=== PATIENT | male | born 1945 | race Caucasian/White ===

== ENCOUNTER 2017-09-18 13:10 | Observation (INO) ==
--- NOTE | 2017-09-18 19:04 | Internal Med History&Physical ---
Date of Encounter: 09/18/17 Time of Encounter: 19:04 Internal Medicine - H&P: HPI Chief complaint: SOB History of present illness: Mr. Donato is a 71 year old male that appears ill and Has history of aspiration pneumonia who presented with Symptoms similar to previous episodes of this now. He is non verbal and history could not be obtained. Patient's blood pressure dropped into the 70s and Sepsis protocol and order set initiated. The patient should be NPO and has a peg tube , but occassinally will have food orally. The patient was evaluated by the ER staff, receive IV fluid which improved his low pressure significantly, there was no evidence of pneumonia on chest x-ray however giving his past medical history and his presentation , there was a concern for aspiration pneumonia for pneumonia, the patient was admitted for further evaluation and management. Past Med Surg Social Fam HX - Past Medical History Medical history: cancer, COPD, CVA, hyperlipidemia, hypertension, seizures, thyroid disease, other Additional medical history: CHRONIC BACK PAIN Psychiatric history: no psych history - Past Surgical History Surgical History: appendectomy, cancer surgery, herniorrhaphy, tracheostomy Additional surgical history: RADICAL NECK DISECTION, TONGUE SURG, G-TUBE - Social History Smoking Status: Former smoker Smokeless Tobacco Status: No Alcohol use: none Drug use: marijuana - Family History Grandfather History Unknown: Yes Living Status: Internal Medicine - H&P: Meds Amlodipine Besylate 2.5 mg PO DAILY 09/18/17 [History] Atenolol [Tenormin] 25 mg PO DAILY 09/18/17 [History] Docusate [Colace] 100 mg PO DAILY 09/18/17 [History] Guaifenesin [Mucus Relief] 400 mg PO Q6H PRN 09/18/17 [History] Ipratropium/Albuterol Neb [Duoneb] 3 ml IH Q6HR PRN 09/18/17 [History] Levothyroxine [Synthroid] 175 mcg PO DAILY 09/18/17 [History] Oxycodone HCl [Oxycontin] 10 mg PO BID 09/18/17 [History] Phenytoin [Dilantin] 100 mg PO TID 09/18/17 [History] 3 Allergy/AdvReac Type Severity Reaction Status Date / Time No Known Allergies Allergy Verified 09/18/17 18:40 ROS unobtainable: due to mental status All Systems PM: A 10-system review of systems was performed and is negative for pertinent findings except as documented above in the HPI. - Constitutional Vitals: Temp Pulse Resp BP Pulse Ox 98.9 F 63 14 123/73 95 09/18/17 17:17 09/18/17 17:17 09/18/17 17:17 09/18/17 17:17 09/18/17 17:17 General appearance: Present: A&O X 3 - Head Head exam: Present: atraumatic, normocephalic - Respiratory Respiratory exam: Present: rhonchi. Absent: accessory muscle use, rales, wheezes - Cardiovascular Cardiovascular exam: Present: RRR, +S1, +S2. Absent: diastolic murmur, gallop, rubs, systolic murmur - GI/Abdominal GI/Abdominal exam: Present: normal bowel sounds, soft, no peritoneal signs. Absent: distended, tenderness Additional comments: peg tube in place - Extremities Exam Extremities exam: Present: warm, radial pulses palpable and symmetrical. Absent : calf tenderness, cyanotic, pedal edema Internal Med - H&P Results - Labs CBC & Chem 7: 09/19/17 05:20 09/19/17 05:20 - Assessment and plan (1) Aspiration pneumonia Current Visit: Yes Status: Acute Assessment and plan: - Aspiration Pneumonia - Blood Cx -NPO - Antibiotics - CBCD, CMP in AM - Tylenol 650 mg PO q 4-6 hr PRN pain or fever - Home meds - check the list and restart accordingly - Heparin 5000 U SQ BID Qualifiers: Qualified Code(s): J69.0 - Pneumonitis due to inhalation of food and vomit (2) Tongue cancer Current Visit: No Status: Resolved Assessment and plan: Status post radical neck dissection (3) Hyperlipidemia Current Visit: Yes Status: Acute Assessment and plan: We will obtain fasting lipid profile and continue home medication Qualifiers: Qualified Code(s): E78.5 - Hyperlipidemia, unspecified (4) Seizure Current Visit: No Status: Acute Assessment and plan: We will continue home medication (5) Hypothyroidism Current Visit: Yes Status: Acute Assessment and plan: We will continue levothyroxine Qualifiers: Qualified Code(s): E03.9 - Hypothyroidism, unspecified (6) Anemia Current Visit: Yes Status: Acute Assessment and plan: Likely secondary to chronic disease we will continue to monitor H&H Qualifiers: Qualified Code(s): D64.9 - Anemia, unspecified (7) DVT prophylaxis Current Visit: Yes Status: Acute Assessment and plan: Heparin 5000 twice a day - Time Spent With Patient Total time spent is greater than 50% in coordination of care (as documented) at patient's floor/unit and/or counseling patient:
[2017-09-18] MEDS ORDERED: Naloxone 0.4 MG/ML INJ IVP PRN (20:21)
[2017-09-18] MEDS ORDERED: Ondansetron 4 MG/2 ML VIAL IVP PRN (20:21)
[2017-09-18] MEDS ORDERED: *HR* HYDROcodone/Acet 5/325 mg TABLET PO PRN (20:21)
[2017-09-18] MEDS ORDERED: Acetaminophen 325 MG TABLET PO PRN (20:21)
[2017-09-18] MEDS ORDERED: Ipratropium/Albuterol Neb 3 ML IH PRN (20:26)
[2017-09-18] MEDS ORDERED: GuaiFENesin Liq 200 MG/10 ML UDC PO PRN (20:26)
[2017-09-18] MEDS ORDERED: *HR* OxyCODONE ER (12 HR) 10 MG TABLET PO SCH (21:00)
[2017-09-18] MEDS: *HR* OxyCODONE Immed Rel 5 MG TABLET PO PRN (21:33)
[2017-09-18] MEDS: 0.9 % Sodium Chloride 1,000 ML IVC SCH (21:33)
[2017-09-18 22:51] LABS: Chol/HDL Ratio 2.7 (0-4.9)
[2017-09-19 05:57] LABS: Hematocrit 36.3 % (37.5-50.1); Hemoglobin 12.5 g/dL (12.9-16.9); Mean Corpuscular HGB Conc 34.4 g/dL (31.6-35.5); Mean Corpuscular Hemoglobin 32.6 pg (28.0-33.3); Mean Corpuscular Volume 94.5 fL (83.0-100.0); Mean Platelet Volume 10.7 fL (9.4-12.4); Platelet Count 325 K/mcL (140-400); Red Blood Count 3.84 M/mcL (4.19-5.50); Red Cell Distribution Width 12.2 % (11.5-14.5)
[2017-09-19 06:04] LABS: INR 1.1; Prothrombin Time 12.5 Seconds (9.4-12.1)
[2017-09-19] MEDS: *HR* Heparin 5,000 UNIT/ML VIAL SQ SCH ×2 (06:12→16:29)
[2017-09-19 06:17] LABS: Alanine Aminotransferase 13 Units/L (7-52); Albumin 3.6 g/dL (3.5-5.7); Albumin/Globulin Ratio 1.3 (1.1-2.2); Alkaline Phosphatase 92 Units/L (34-104); Aspartate Amino Transferase 23 Units/L (13-39); BUN/Creatinine Ratio 26 (6-26); Bilirubin,Total 0.4 mg/dL (0.3-1.0); Blood Urea Nitrogen 23 mg/dL (8-23); Calcium 9.1 mg/dL (8.6-10.3); Carbon Dioxide 25 mEq/L (23-29); Chloride 105 mEq/L (98-107); Globulin 2.8 g/dL (2.4-3.5); Glucose 82 mg/dL (70-105); Osmolality,Calculated 283 (280-300); Phosphorous 2.9 mg/dL (2.7-4.5); Potassium 3.7 mEq/L (3.5-5.1); Sodium 135 mEq/L (136-145); Total Protein 6.4 g/dL (6.4-8.9); eGFR For African Americans > 60 (> 60); eGFR For Non-African Americans > 60 (> 60)
[2017-09-19] MEDS: amLODIPine 5 MG TABLET PO SCH (10:10)
[2017-09-19] MEDS: *HR* OxyCODONE Immed Rel 5 MG TABLET PO PRN (10:11)
[2017-09-19] MEDS: Piperacillin/Tazobactam 3.375 GM in 0.9 % Sodium Chloride Mini Bag 100 ML IVPB SCH ×2 (10:12→16:25)
--- NOTE | 2017-09-19 10:51 | Internal Med Progress Note ---
Date of Encounter: 09/19/17 Time of Encounter: 10:51 - Assessment and plan (1) Aspiration pneumonia Current Visit: Yes Status: Acute Assessment and plan: We will continue antibiotic coverage, no further fevers reported, leukocytic count is significantly improving, culture are pending Qualifiers: Qualified Code(s): J69.0 - Pneumonitis due to inhalation of food and vomit (2) Hyperlipidemia Current Visit: Yes Status: Acute Assessment and plan: fasting lipid profile is not was noted Qualifiers: Qualified Code(s): E78.5 - Hyperlipidemia, unspecified (3) Seizure Current Visit: No Status: Acute Assessment and plan: We will continue home medication (4) Hypothyroidism Current Visit: Yes Status: Acute Assessment and plan: We will continue levothyroxine Qualifiers: Qualified Code(s): E03.9 - Hypothyroidism, unspecified (5) Anemia Current Visit: Yes Status: Acute Assessment and plan: Likely secondary to chronic disease we will continue to monitor H&H Qualifiers: Qualified Code(s): D64.9 - Anemia, unspecified (6) DVT prophylaxis Current Visit: Yes Status: Acute Assessment and plan: Heparin 5000 twice a day - Time Spent With Patient Total time spent is greater than 50% in coordination of care (as documented) at patient's floor/unit and/or counseling patient: - Subjective Interval history: Patient is comfortable, sleepy, no events overnight. - Constitutional Vitals: Temp Pulse Resp BP Pulse Ox 97.5 F L 68 17 117/76 95 09/19/17 07:55 09/19/17 07:55 09/19/17 07:55 09/19/17 07:55 09/19/17 07:55 General appearance: Present: A&O X 3 - Head Head exam: Present: atraumatic, normocephalic - Neck Neck exam general surgery: Present: supple, trachea midline. Absent: lymphadenopathy - Respiratory Respiratory exam: Present: CTAB. Absent: accessory muscle use, rales, rhonchi, wheezes - Cardiovascular Cardiovascular exam: Present: RRR, +S1, +S2. Absent: diastolic murmur, gallop, rubs, systolic murmur - GI/Abdominal GI/Abdominal exam: Present: normal bowel sounds, soft, no peritoneal signs. Absent: distended, tenderness - Extremities Exam Extremities exam: Present: warm, radial pulses palpable and symmetrical. Absent : calf tenderness, cyanotic, pedal edema Internal Medicine: Result - Labs CBC & Chem 7: 09/19/17 05:20 09/19/17 05:20 Labs: Short CBC 09/19/17 Range/Units 05:20 WBC 9.9 (4.3-11.1) K/mcL Hgb 12.5 L (12.9-16.9) g/dL Hct 36.3 L (37.5-50.1) % Plt Count 325 (140-400) K/mcL BMP 09/19/17 05:20 Sodium 135 L Potassium 3.7 Chloride 105 Carbon Dioxide 25 BUN 23 Creatinine 0.87 Glucose 82 Calcium 9.1 Liver Function 09/19/17 Range/Units 05:20 Total Bilirubin 0.4 (0.3-1.0) mg/dL AST 23 (13-39) Units/L ALT 13 (7-52) Units/L Alkaline Phosphatase 92 (34-104) Units/L Albumin 3.6 (3.5-5.7) g/dL - ABG Interpretation ABG results: PT/INR, D-dimer PT 12.5 Seconds (9.4-12.1) H 09/19/17 05:20 Consult Discharge Plan - Plan [facility]errals: [facility] [Primary Care Provider] -
[2017-09-19] MEDS: 0.9 % Sodium Chloride 1,000 ML IVC SCH (20:12)
[2017-09-20] MEDS: Piperacillin/Tazobactam 3.375 GM in 0.9 % Sodium Chloride Mini Bag 100 ML IVPB SCH ×4 (00:05→23:39)
[2017-09-20] MEDS: *HR* Heparin 5,000 UNIT/ML VIAL SQ SCH ×2 (06:30→18:02)
[2017-09-20] MEDS: amLODIPine 5 MG TABLET PO SCH (08:46)
[2017-09-20] MEDS ORDERED: 0.9 % Sodium Chloride 1,000 ML IVC ONE (11:47)
--- NOTE | 2017-09-20 12:23 | Internal Med Progress Note ---
Date of Encounter: 09/20/17 Time of Encounter: 12:20 - Assessment and plan (1) Aspiration pneumonia Current Visit: Yes Status: Acute Assessment and plan: Will continue with Zosyn. No further fevers reported, leukocytic count is significantly improving, culture are pending. Will check chest x ray in am. Qualifiers: Qualified Code(s): J69.0 - Pneumonitis due to inhalation of food and vomit (2) Hyperlipidemia Current Visit: Yes Status: Acute Assessment and plan: LDL 101, recommend low cholesterol and low fat diet Qualifiers: Qualified Code(s): E78.5 - Hyperlipidemia, unspecified (3) Seizure Current Visit: No Status: Acute Assessment and plan: Dilantin (4) Hypothyroidism Current Visit: Yes Status: Acute Assessment and plan: Levothyroxine Qualifiers: Qualified Code(s): E03.9 - Hypothyroidism, unspecified (5) Anemia Current Visit: Yes Status: Acute Assessment and plan: Hgb stable. Monitor prn Qualifiers: Qualified Code(s): D64.9 - Anemia, unspecified (6) DVT prophylaxis Current Visit: Yes Status: Acute Assessment and plan: Heparin (7) Hypotension Current Visit: Yes Status: Acute Assessment and plan: Pt's BP dropped to 59/39. Given fluid bolus and maintenance fluid. Repeat BP 162 /95 Qualifiers: Qualified Code(s): I95.9 - Hypotension, unspecified - Time Spent With Patient Total time spent is greater than 50% in coordination of care (as documented) at patient's floor/unit and/or counseling patient: less than 15 minutes - Subjective Interval history: Pt was confused this morning. But that improved with some fluids. Pt denies CP but did request oxygen. - Constitutional Vitals: Temp Pulse Resp BP Pulse Ox 98.5 F 74 14 59/39 93 09/20/17 11:33 09/20/17 11:33 09/20/17 11:33 09/20/17 11:33 09/20/17 11:33 General appearance: Present: A&O X 3 - Head Head exam: Present: atraumatic, normocephalic - Eye Eye exam: Present: PERRL, conjuntiva pink, sclera anicteric Pupils: Present: PERRL - Neck Neck exam general surgery: Present: supple, trachea midline. Absent: lymphadenopathy - Respiratory Respiratory exam: Present: rhonchi. Absent: accessory muscle use, CTAB, rales, wheezes - Cardiovascular Cardiovascular exam: Present: RRR, +S1, +S2. Absent: diastolic murmur, gallop, rubs, systolic murmur - GI/Abdominal GI/Abdominal exam: Present: normal bowel sounds, soft, no peritoneal signs. Absent: distended, tenderness - Extremities Exam Extremities exam: Present: warm, radial pulses palpable and symmetrical. Absent : calf tenderness, cyanotic, pedal edema - Neurological Exam Neurological exam: Present: CN II-XII intact, oriented X3, no focal deficits. Absent: pronater drift, facial droop, speech deficit - Skin Skin exam: Present: dry, intact Internal Medicine: Result - Labs CBC & Chem 7: 09/19/17 05:20 09/19/17 05:20 - ABG Interpretation ABG results: PT/INR, D-dimer PT 12.5 Seconds (9.4-12.1) H 09/19/17 05:20 Consult Discharge Plan - Plan [facility]errals: [facility] [Primary Care Provider] -
[2017-09-20] MEDS: 0.9 % Sodium Chloride 1,000 ML IVC SCH (19:11)
[2017-09-21] MEDS: 0.9 % Sodium Chloride 1,000 ML IVC SCH (03:12)
[2017-09-21] MEDS: *HR* Heparin 5,000 UNIT/ML VIAL SQ SCH ×2 (06:21→17:18)
[2017-09-21] MEDS: amLODIPine 5 MG TABLET PO SCH (09:00)
--- NOTE | 2017-09-21 09:05 | Internal Med Progress Note ---
Date of Encounter: 09/21/17 Time of Encounter: 09:03 - Assessment and plan (1) Aspiration pneumonia Current Visit: Yes Status: Acute Assessment and plan: Looks to be improving. Currently on 2L NC; wean to room air today. Discontinue cipro and zosyn; start augmentin. Will monitor vitals closely. Recheck CBC in AM. If stable on augmentin and able to wean supplemental O2, will plan for discharge tomorrow AM. Qualifiers: Aspiration pneumonia type: unspecified Laterality: unspecified laterality Lung location: unspecified part of lung Qualified Code(s): J69.0 - Pneumonitis due to inhalation of food and vomit (2) Hypotension Current Visit: Yes Status: Acute Assessment and plan: BP dropped to 50s systolic yesterday and needed IVF; BP has subsequently been high normal, but variable. Will discontinue IVF today. Will hold home amlodipine. Continue home atenolol. Monitor vitals closely. If BP stable today, will plan for discharge home tomorrow. Qualifiers: Hypotension type: unspecified hypotension type Qualified Code(s): I95.9 - Hypotension, unspecified (3) Hyperlipidemia Current Visit: Yes Status: Acute Assessment and plan: Continue cardiac, low fat/low cholesterol diet. Qualifiers: Hyperlipidemia type: mixed hyperlipidemia Qualified Code(s): E78.2 - Mixed hyperlipidemia (4) Seizure Current Visit: Yes Status: Chronic Assessment and plan: Continue home dilantin. Pharmacist will educate on dilantin from feedings. (5) Hypothyroidism Current Visit: Yes Status: Chronic Assessment and plan: Continue home medications. Qualifiers: Hypothyroidism type: unspecified Qualified Code(s): E03.9 - Hypothyroidism , unspecified (6) Anemia Current Visit: Yes Status: Chronic Assessment and plan: Likely secondary to chronic disease. Recheck CBC in AM. Qualifiers: Anemia type: other cause Other causes of anemia: chronic disease, other Qualified Code(s): D63.8 - Anemia in other chronic diseases classified elsewhere (7) Advance directive discussed with patient Current Visit: Yes Status: Acute Assessment and plan: Confirmed code status of DNR-CCA-DNI with patient today. Completed paperwork placed in chart. (8) DVT prophylaxis Current Visit: Yes Status: Acute Assessment and plan: Continue SQ heparin. - Time Spent With Patient Total time spent is greater than 50% in coordination of care (as documented) at patient's floor/unit and/or counseling patient: less than 15 minutes - Subjective Interval history: Patient had no acute events overnight. He states that he is "ok." He seems a little more alert this AM, but still with some difficultly with recall. He is oriented to place and time, but cannot recall his birthdate. He denies any fever, chills, chest pain, SOB, nausea, vomiting, or abdominal pain. He has no complaints at this time. - Constitutional Vitals: Temp Pulse Resp BP Pulse Ox 97.4 F L 69 17 167/87 99 09/21/17 06:58 09/21/17 06:58 09/21/17 05:34 09/21/17 06:58 09/21/17 06:58 General appearance: Present: cooperative, A&O X 3, no acute distress, underweight, answers questions appropriately - Respiratory Respiratory exam: Present: CTAB. Absent: accessory muscle use, rales, rhonchi, wheezes Additional comments: Normal WOB - Cardiovascular Cardiovascular exam: Present: RRR, +S1, +S2. Absent: diastolic murmur, gallop, rubs, systolic murmur Additional comments: No BLE edema - GI/Abdominal GI/Abdominal exam: Present: normal bowel sounds, soft. Absent: distended, hepatomegaly, mass, splenomegaly, tenderness - Psychiatric Psychiatric exam: Present: normal affect, normal mood. Absent: agitated, anxious, depressed - Skin Skin exam: Present: dry, intact, warm. Absent: cyanosis, rash Internal Medicine: Result - Labs CBC & Chem 7: 09/19/17 05:20 09/19/17 05:20 - ABG Interpretation ABG results: PT/INR, D-dimer PT 12.5 Seconds (9.4-12.1) H 09/19/17 05:20 Consult Discharge Plan - Plan [facility]errals: [facility] [Primary Care Provider] -
[2017-09-21 09:58] LABS: Basophils # 0.1 K/mcL (0.0-0.2); Basophils % 0.8 %; Eosinophils % 11.1 %; Hematocrit 29.4 % (37.5-50.1); Immature Granulocytes % 0.3 % (0-4); Mean Corpuscular HGB Conc 33.7 g/dL (31.6-35.5); Mean Corpuscular Hemoglobin 31.5 pg (28.0-33.3); Mean Corpuscular Volume 93.6 fL (83.0-100.0); Mean Platelet Volume 10.3 fL (9.4-12.4); Monocytes # 0.8 K/mcL (0.0-1.3); Monocytes % 8.5 %; Neutrophils # 6.2 K/mcL (1.6-8.9); Platelet Count 280 K/mcL (140-400); Red Blood Count 3.14 M/mcL (4.19-5.50); Red Cell Distribution Width 12.4 % (11.5-14.5); Segmented Neutrophils % 68.3 %
[2017-09-21 09:59] LABS: Hemoglobin 9.9 g/dL (12.9-16.9)
[2017-09-21 10:17] LABS: BUN/Creatinine Ratio 12 (6-26); Blood Urea Nitrogen 11 mg/dL (8-23); Calcium 8.2 mg/dL (8.6-10.3); Carbon Dioxide 25 mEq/L (23-29); Chloride 106 mEq/L (98-107); Glucose 90 mg/dL (70-105); Osmolality,Calculated 279 (280-300); Potassium 3.1 mEq/L (3.5-5.1); Sodium 135 mEq/L (136-145); eGFR For African Americans > 60 (> 60); eGFR For Non-African Americans > 60 (> 60)
[2017-09-21] MEDS: Amoxicillin/Clavulanate 400 MG/5 ML UDC GTUBE SCH ×2 (10:20→20:13)
[2017-09-21] MEDS: Docusate Oral Soln 100 MG/10 ML UDC GTUBE SCH (10:20)
[2017-09-21 15:39] LABS: Bilirubin,Urine Negative (Negative); Blood,Urine Negative (Negative); Clarity,Urine Clear (Clear); Color,Urine Yellow (Yellow); Glucose,Urine (UA) Normal (Normal); Ketones,Urine Negative (Negative); Leukocyte Esterase,Urine Negative (Negative); Nitrite,Urine Negative (Negative); PH,Urine 7.5 pH Units (5.0-8.0); Protein,Urine Negative (Neg-Trace); Specific Gravity,Urine 1.014 (1.010-1.025); Urobilinogen,Urine Normal (Normal)
[2017-09-22] MEDS: *HR* Heparin 5,000 UNIT/ML VIAL SQ SCH (05:46)
[2017-09-22 08:01] VITALS: BP 165/91
[2017-09-22 08:31] LABS: Basophils # 0.1 K/mcL (0.0-0.2); Basophils % 0.9 %; Eosinophils # 1.2 K/mcL (0.0-0.6); Eosinophils % 17.5 %; Hematocrit 35.9 % (37.5-50.1); Immature Granulocytes % 0.3 % (0-4); Lymphocytes # 1.1 K/mcL (0.6-4.6); Lymphocytes % 15.4 %; Mean Corpuscular HGB Conc 33.7 g/dL (31.6-35.5); Mean Corpuscular Hemoglobin 31.8 pg (28.0-33.3); Mean Corpuscular Volume 94.2 fL (83.0-100.0); Mean Platelet Volume 10.3 fL (9.4-12.4); Monocytes # 0.7 K/mcL (0.0-1.3); Monocytes % 10.1 %; Neutrophils # 3.9 K/mcL (1.6-8.9); Platelet Count 307 K/mcL (140-400); Red Blood Count 3.81 M/mcL (4.19-5.50); Red Cell Distribution Width 12.4 % (11.5-14.5); Segmented Neutrophils % 55.8 %
[2017-09-22 08:39] LABS: BUN/Creatinine Ratio 12 (6-26); Blood Urea Nitrogen 9 mg/dL (8-23); Carbon Dioxide 23 mEq/L (23-29); Chloride 106 mEq/L (98-107); Glucose 89 mg/dL (70-105); Osmolality,Calculated 282 (280-300); Potassium 3.3 mEq/L (3.5-5.1); Sodium 137 mEq/L (136-145); eGFR For African Americans > 60 (> 60); eGFR For Non-African Americans > 60 (> 60)
[2017-09-22 08:47] LABS: Hemoglobin 12.1 g/dL (12.9-16.9)
[2017-09-22] MEDS: Docusate Oral Soln 100 MG/10 ML UDC GTUBE SCH (08:58)
[2017-09-22] MEDS: Amoxicillin/Clavulanate 400 MG/5 ML UDC GTUBE SCH (08:58)
[2017-09-22] MEDS ORDERED: Potassium Chloride Elixir 20 MEQ/15 ML UDC GTUBE STA (09:14)
--- NOTE | 2017-09-22 09:19 | Discharge Summary ---
- NOTES TO OUTPATIENT PROVIDER Notes to Outpatient Provider: Follow up with PCP in 2-3 days after discharge. Recheck BMP and CBC at that time. Recheck blood pressure at that time and adjust anti-hypertensives as necessary. Orders not resulted at time of discharge: Pending orders 09/22/17 04:00 Basic Metabolic Panel AM 0400 CBC [Complete Blood Count] [HEME] AM 0400 Date of Encounter: 09/22/17 Time of Encounter: 09:17 - Discharge Diagnosis (1) Aspiration pneumonia Priority: Primary Status: Acute Qualifiers: Aspiration pneumonia type: unspecified Laterality: unspecified laterality Lung location: unspecified part of lung Qualified Code(s): J69.0 - Pneumonitis due to inhalation of food and vomit (2) Hypotension Priority: Secondary Status: Resolved Qualifiers: Hypotension type: unspecified hypotension type Qualified Code(s): I95.9 - Hypotension, unspecified (3) Hyperlipidemia Priority: Secondary Status: Chronic Qualifiers: Hyperlipidemia type: mixed hyperlipidemia Qualified Code(s): E78.2 - Mixed hyperlipidemia (4) Seizure Priority: Secondary Status: Chronic (5) Hypothyroidism Priority: Secondary Status: Chronic Qualifiers: Hypothyroidism type: unspecified Qualified Code(s): E03.9 - Hypothyroidism , unspecified (6) Anemia Priority: Secondary Status: Chronic Qualifiers: Anemia type: other cause Other causes of anemia: chronic disease, other Qualified Code(s): D63.8 - Anemia in other chronic diseases classified elsewhere (7) Advance directive discussed with patient Priority: Secondary Status: Inactive (8) DVT prophylaxis Priority: Secondary Status: Acute Hospital course: Mr. Donato is a 71 year old male admitted for aspiration pneumonia. He was admitted to step down unit with telemetry. He was started on IV cipro and IV zosyn. He was placed on supplemental O2. Nutrition was consulted to manage tube feeds. He had some hypotension which resolved with holding home amlodipine and IVF. Leukocytosis improved. Blood pressure remained stable after discontinuing IVF. He was weaned to room air. He had some mild hypokalemia, and was repleted with KCl. He was switched to PO augmentin. He will complete 10 total days of antibiotics. He remains stable today and wants to go home. He will follow up with PCP in 2-3 days after discharge. BMP and CBC can be rechecked at that time. BP can be rechecked and anti-hypertensives adjusted as necessary at that time. Patient has met maximum benefit of this hospitalization and will be discharged home in stable condition. Discharge discussed with: patient, nurse, other (Pharmacist) - Time Spent with Patient Total time spent providing and/or coordinating discharge services: Less than 30 minutes - Discharge Medications Prescriptions: Amoxicillin/Clavulanate [AUGMENTIN Susp] 875 mg GTUBE Q12H 6 Days #51474 mg Home Medications: Atenolol [Tenormin] 25 mg PO DAILY 09/18/17 [History] Docusate [Colace] 100 mg PO DAILY 09/18/17 [History] Guaifenesin [Mucus Relief] 400 mg PO Q6H PRN 09/18/17 [History] Ipratropium/Albuterol Neb [Duoneb] 3 ml IH Q6HR PRN 09/18/17 [History] Levothyroxine [Synthroid] 175 mcg PO DAILY 09/18/17 [History] Oxycodone HCl [Oxycontin] 10 mg PO BID 09/18/17 [History] Phenytoin [Dilantin] 100 mg PO TID 09/18/17 [History] Amoxicillin/Clavulanate [AUGMENTIN Susp] 875 mg GTUBE Q12H 6 Days #72697 mg [Rx] Allergies/Adverse Reactions: 3 Allergy/AdvReac Type Severity Reaction Status Date / Time No Known Allergies Allergy Verified 09/18/17 18:40 Date of admission: 09/18/17 14:38 [facility] care physician: [facility] Consults: 09/18/17 19:58 Consult to Nutrition [CONS] Routine Comment: Consulting Provider: NUTRITION Reason for Dietary Consult: Tube Feed Start & Manage Other:: Takes Two [place] HN TID at home Discharging clinician: Caleb Llanes Anticipated date of discharge: 09/22/17 - Constitutional Vitals: Temp Pulse Resp BP Pulse Ox 98.0 F 69 18 165/91 97 09/22/17 07:58 09/22/17 07:58 09/22/17 07:58 09/22/17 07:58 09/22/17 07:58 General appearance: Present: cooperative, A&O X 3, no acute distress, underweight, answers questions appropriately - Respiratory Respiratory exam: Present: CTAB. Absent: accessory muscle use, rales, rhonchi, wheezes Additional comments: Normal WOB - Cardiovascular Cardiovascular exam: Present: RRR, +S1, +S2. Absent: diastolic murmur, gallop, rubs, systolic murmur Additional comments: No BLE edema - GI/Abdominal GI/Abdominal exam: Present: normal bowel sounds, soft. Absent: distended, hepatomegaly, mass, splenomegaly, tenderness - Psychiatric Psychiatric exam: Present: normal affect, normal mood. Absent: agitated, anxious, depressed - Skin Skin exam: Present: dry, intact, warm. Absent: cyanosis, rash - Patient Status Disposition: Home, Self-Care Condition: Good Overall status at discharge: patient is progressing back to baseline - Discharge Instructions Follow Up With: [facility] [Primary Care Provider] - 10/03/17 8:45 am Additional Instructions: Follow up with PCP in 2-3 days after discharge. Recheck BMP and CBC at that time. Recheck blood pressure at that time and adjust anti-hypertensives as necessary. - Diet and Activity Activity: resume usual activities as tolerated Diet: other (Tube Feeding Diet, Bolus 1 Can of TwoCal HN TID)
== END 2017-09-22 12:39 | disposition home or self-care (01) ==
LOC: 2SOUTHHOLD → 2NNU 09-20 13:37
PROVIDERS: ADMIT Student in an Organized Health Care Education/Training Program; ATTEND Student in an Organized Health Care Education/Training Program

== ENCOUNTER 2018-04-11 02:03 | Inpatient (IN) ==
--- NOTE | 2018-04-11 01:57 | Internal Med History&Physical ---
<See Leahy - Last Filed: 04/11/18 03:30> Date of Encounter: 04/11/18 Time of Encounter: 01:30 Internal Medicine - H&P: HPI History of present illness: Mr. Donato is a 72 year old male with a past medical history of COPD, strokes, carotid occlusion, tongue cancer with resection, aspiration pneumonia, CVA, hyperlipidemia, hypertension, seizures, thyroid disease who is a transfer from [facility] because of dyspnea, influenza and acute exacerbation of COPD. Most of the history was obtained from the records from the [facility] as the patient is a very poor historian, and to a certain extent doesn't seem to be having a good insight into his health condition. . Patient had some cough 2 days ago and was requiring breathing treatments, had some increasing chest congestion yesterday along with some labored breathing which was refractory to the use of nebulizers, patient had no chest pain, hemoptysis, fever or chills, nausea or vomiting. Patient was taken to the [facility] ER. Initial workup At the [facility] ED showed that patient was tested positive for influenza. Patient also had a troponin of 0.41, lactate 2.2, BNP 118 along with an elevated d-dimer of 3192, had CTA showed non-occlusive thrombus and multifocal airspace disease bilaterally concerning for pneumonia. Patient was empirically started on broad-spectrum antibiotics for of possible aspiration pneumonia. Patient was also given Oseltamivir 75 mg for his influenza. Patient is a blood pressure was 76/48, given fluid boluses and his most recent blood pressure is 142/95. When I saw the patient, he was on 4 L nasal cannula satting at 98%, RR 20, HR 92, temp: 97.7, meeting 2/4 SIRS criteria. Patient's EKG from a at 19:58 showed sinus tachycardia with prolonged QT interval (QTc ~ 510 ms), with minimal ST depression in diffuse leads, also concern for probable left atrial enlargement. Patient's will be coming to the hospital tomorrow morning and we look forward to getting more information pertaining to patient's condition. P Past Med Surg Social Fam HX - Past Medical History Medical history: cancer, COPD, CVA, hyperlipidemia, hypertension, seizures, thyroid disease, other Additional medical history: CHRONIC BACK PAIN Psychiatric history: no psych history - Past Surgical History Surgical History: appendectomy, cancer surgery, herniorrhaphy, tracheostomy Additional surgical history: RADICAL NECK DISECTION, TONGUE SURG, G-TUBE - Social History Smoking Status: Former smoker Smokeless Tobacco Status: No Alcohol use: none Drug use: marijuana - Family History Grandfather Living Status: Internal Medicine - H&P: Meds RX: Atenolol [Tenormin] 25 mg PO DAILY 09/18/17 [History] RX: Guaifenesin [Mucus Relief] 400 mg PO Q6H PRN 09/18/17 [History] RX: Ipratropium/Albuterol Neb [Duoneb] 3 ml IH Q6HR PRN 09/18/17 [History] RX: Levothyroxine [Synthroid] 175 mcg PO DAILY 09/18/17 [History] RX: Oxycodone HCl [Oxycontin] 10 mg PO BID 09/18/17 [History] RX: Phenytoin [Dilantin] 100 mg PO TID 09/18/17 [History] Allergy/AdvReac Type Severity Reaction Status Date / Time No Known Allergies Allergy Verified 01/07/18 12:46 All Systems PM: A 10-system review of systems was performed and is negative for pertinent findings except as documented above in the HPI. - Constitutional Vitals: Temp Pulse Resp BP Pulse Ox 97.7 F 92 20 142/95 98 04/11/18 01:00 04/11/18 01:00 04/11/18 01:00 04/11/18 01:00 04/11/18 01:00 Exam: Gen.: A&O*3, , responds to commands, opens his eyes, no acute distress. HEENT: oropharynx clear, Normocephalic, atraumatic, MMM Neck: supple, no JVD, no lymphadenopathy, no carotid bruit. Cardiac: RRR, no murmur, +S1/S2, No BLE edema, PMI non-displaced Pulmonary: crackles at the lung bases bilaterally, decreased breath sounds, unlabored breathing Abdomen: soft, nontender, BS noted, no guarding, mildly distended. No organomegaly, no pulsatile masses, Skin: warm and dry, non -tender, erythema on the right upper chest area. Feels warm, clammy, no rashes, no lesions, MSK: could not be assess because patient is somnolent. Neuro: A&O, moves all extremities, no focal deficits, sensation intact - Assessment and plan (1) Sepsis Current Visit: Yes Status: Acute Assessment and plan: - Likely due to acute exacerbation of COPD along with evidence of multifocal pneumonia on chest CTA. -Patient meeting 2/4 SIRS criteria- HR: 92, RR: 20, currently afebrile and not leukocytotic - Will be empirically put on broad-spectrum antibiotics: vancomycin and Zosyn, but he escalated pending culture sensitivities -Sputum and blood cultures are pending, Legionella and strep pneumo urine antigen test pending. (2) Influenza Current Visit: No Status: Acute Assessment and plan: - Was tested positive for influenza A antigen. -Currently on Oseltamivir 75 mg (3) Acute exacerbation of chronic obstructive airways disease Current Visit: No Status: Acute Assessment and plan: - Patient has a history of COPD , uses a nebulizer at home -On physical exam he does have productive cough, since congestion significantly increased last night along with labored breathing -Early satting at 95% on non-4 L of nasal cannula (patient does not use any home oxygen). -Duoneb ANTWON, solumedrol (4) Pneumonia Current Visit: No Status: Acute Assessment and plan: - Patient's CTA showed evidence of multifocal disc disease bilaterally concerning for pneumonia. Patient has a history of aspiration pneumonia and was last admitted on September 2017 same reason -On physical exam he has a bilateral crackles in the lung bases. Decreased breath sounds. -currently afebrile, with normal WBC, currently on broad-spectrum antibiotics for empiric coverage. De-escalate Abx pending culture sensitivities - Qualifiers: Pneumonia type: due to unspecified organism Laterality: right Lung location: lower lobe of lung Qualified Code(s): J18.1 - Lobar pneumonia, unspecified organism (5) Elevated troponin I level Current Visit: No Status: Acute Assessment and plan: - Likely due to severe sepsis and demand ischemia because patient was hypotensive when he came to the [facility] ER. - Currently s/p 1 bolus, EKG was negative for any ST-T changes, will trend cardiac biomarkers - On physical exam patient has no radiating/non-radiating chest pain, diaphoresis or nausea - (6) Hypothyroidism Current Visit: No Status: Chronic Assessment and plan: - Patient has a history of hypothyroidism -Continue home meds levothyroxine 175 mcg PO daily. Qualifiers: Hypothyroidism type: unspecified Qualified Code(s): E03.9 - Hypothyroidism, unspecified (7) DVT prophylaxis Current Visit: No Status: Acute Assessment and plan: - no indications for anti coagulations at the moment - on EPCDs. - Time Spent With Patient Total time spent is greater than 50% in coordination of care (as documented) at patient's floor/unit and/or counseling patient: <Maryuri Wen - Last Filed: 04/11/18 04:32> Date of Encounter: 04/11/18 All Systems PM: A 10-system review of systems was performed and is negative for pertinent findings except as documented above in the HPI. - Constitutional Vitals: Temp Pulse Resp BP Pulse Ox 97.7 F 92 20 142/95 98 04/11/18 01:00 04/11/18 01:00 04/11/18 01:00 04/11/18 01:00 04/11/18 01:00 - Assessment and plan (1) DVT prophylaxis Current Visit: No Status: Acute (2) Hypothyroidism Current Visit: No Status: Chronic Qualifiers: Hypothyroidism type: unspecified Qualified Code(s): E03.9 - Hypothyroidism, unspecified (3) Influenza Current Visit: No Status: Acute (4) Acute exacerbation of chronic obstructive airways disease Current Visit: No Status: Acute (5) Pneumonia Current Visit: No Status: Acute Qualifiers: Pneumonia type: due to unspecified organism Laterality: right Lung location: lower lobe of lung Qualified Code(s): J18.1 - Lobar pneumonia, unspecified organism (6) Elevated troponin I level Current Visit: No Status: Acute (7) Sepsis Current Visit: Yes Status: Acute - Time Spent With Patient Total time spent is greater than 50% in coordination of care (as documented) at patient's floor/unit and/or counseling patient: - Attending Attestation I performed a history and physical exam of the patient and discussed management with the resident. I reviewed the resident's note and agree with the documented findings and plan of care. 72 year old male received here on transfer for severe sepsis secondary to bacterial pneumonia; concern for bacterial superimposition over the underlying influenza infection. Patient reports no recollection of the reasons why he was brought to the hospital and reports feeling well with no complaints. He has somewhat of an evasive nature to answering questions. Physical exam remarkable for rales in the right base. No peripheral edema. Non-tender abdomen. Flat affect. Will continue broad spectrum antibiotics, send blood and sputum cultures, oseltamivir to complete a 5 day course, fluid resuscitation, supplement K, check echo (elevated troponin likely from demand in the setting of sepsis and hypotension on initial presentation). No indication for anticoagulation at this time. Check phenytoin level before resuming and TSH. DVT prophyalxis is indicated. RUDY WILLIAMSON.
[2018-04-11] MEDS ORDERED: Potassium Chloride Elixir 20 MEQ/15 ML UDC PO ONE (02:36)
[2018-04-11] MEDS: Ringers Solution, Lactated 1,000 ML IVC SCH (03:23)
[2018-04-11 05:05] LABS: Hematocrit 35.9 % (37.5-50.1); Hemoglobin 11.3 g/dL (12.9-16.9); Immature Granulocytes % 0.3 % (0-4); Lymphocytes # 0.3 K/mcL (0.6-4.6); Lymphocytes % 2.6 %; Mean Corpuscular HGB Conc 31.5 g/dL (31.6-35.5); Mean Corpuscular Volume 92.3 fL (83.0-100.0); Mean Platelet Volume 11.5 fL (9.4-12.4); Monocytes # 0.2 K/mcL (0.0-1.3); Monocytes % 1.5 %; Neutrophils # 10.3 K/mcL (1.6-8.9); Platelet Count 216 K/mcL (140-400); Red Blood Count 3.89 M/mcL (4.19-5.50); Red Cell Distribution Width 13.7 % (11.5-14.5); Segmented Neutrophils % 95.6 %
[2018-04-11 05:33] LABS: BUN/Creatinine Ratio 40 (6-26); Blood Urea Nitrogen 37 mg/dL (8-23); Calcium 8.9 mg/dL (8.6-10.3); Carbon Dioxide 22 mEq/L (23-29); Chloride 109 mEq/L (98-107); Glucose 164 mg/dL (70-105); Osmolality,Calculated 298 (280-300); Potassium 4.9 mEq/L (3.5-5.1); Sodium 138 mEq/L (136-145); Troponin I 0.13 ng/mL (< 0.04); eGFR For Non-African Americans > 60 (> 60)
[2018-04-11 05:39] LABS: Amphetamine Screen,Urine Negative ng/mL (Cutoff=1000); Barbiturate Screen,Urine Negative ng/mL (Cutoff=200); Benzodiazepines Screen,Urine Negative ng/mL (Cutoff=200); Cannabinoid Screen,Urine Positive ng/mL (Cutoff = 50); Cocaine Screen,Urine Negative ng/mL (Cutoff= 300); Opiate Screen,Urine Negative ng/mL (Cutoff=300); Phencyclidine Screen,Urine Negative ng/mL (Cutoff=25)
[2018-04-11] MEDS ORDERED: Aminoglycoside Consult 1 EACH MC ONE (07:24)
[2018-04-11] MEDS: Piperacillin/Tazobactam 3.375 GM in 0.9 % Sodium Chloride Mini Bag 100 ML IVPB SCH ×2 (08:30→16:23)
[2018-04-11] MEDS: Oseltamivir 6 MG/ML UDC GTUBE SCH ×2 (08:31→21:26)
--- NOTE | 2018-04-11 11:24 | Event Note ---
Date of Encounter: 04/11/18 Time of Encounter: 08:30 H&P reviewed. Patient was admitted for sepsis secondary to pneumonia and influenza A infection. No wheezing on exam. States that his breathing had improved since the arrival. Denies any anginal symptoms. Troponin downtrending from 0.14 -> 0.13. TSH also noted to be suppressed at 0.04 while on 175mcg of levothyroxine. Will continue IV Abx, tamiflu, and check Echocardiogram. Decreased the dose of levothyroxine to 125mcg. Resume home meds including AED once reconciled.
[2018-04-11] MEDS ORDERED: Ipratropium/Albuterol Neb 3 ML IH PRN (11:26)
[2018-04-11] MEDS ORDERED: Dextrose Gel 15 GM/37.5 ML TUBE PO PRN ×2 (11:53)
[2018-04-11] MEDS ORDERED: D5% in Water 1,000 ML IVC PRN (11:53)
[2018-04-11] MEDS ORDERED: *HR* Dextrose 50 % in Water (Syg) 50 ML SYRINGE IVP PRN (11:53)
[2018-04-11] MEDS: Phenytoin Oral Susp 100 MG/4 ML UDC GTUBE SCH ×2 (12:04→21:25)
[2018-04-11] MEDS ORDERED: Oseltamivir Phosphate 30 MG CAPSULE PO ONE (20:14)
[2018-04-11] MEDS ORDERED: *HR* OxyCODONE ER (12 HR) 10 MG TABLET PO SCH (21:00)
[2018-04-12] MEDS: Piperacillin/Tazobactam 3.375 GM in 0.9 % Sodium Chloride Mini Bag 100 ML IVPB SCH ×4 (01:08→23:34)
[2018-04-12 04:19] LABS: Basophils % 0.2 %; Eosinophils # 0.1 K/mcL (0.0-0.6); Eosinophils % 0.5 %; Hematocrit 33.3 % (37.5-50.1); Hemoglobin 10.4 g/dL (12.9-16.9); Immature Granulocytes % 0.4 % (0-4); Lymphocytes # 0.9 K/mcL (0.6-4.6); Lymphocytes % 9.1 %; Mean Corpuscular HGB Conc 31.2 g/dL (31.6-35.5); Mean Corpuscular Hemoglobin 28.8 pg (28.0-33.3); Mean Corpuscular Volume 92.2 fL (83.0-100.0); Mean Platelet Volume 11.4 fL (9.4-12.4); Monocytes # 0.7 K/mcL (0.0-1.3); Monocytes % 7.3 %; Neutrophils # 8.3 K/mcL (1.6-8.9); Platelet Count 233 K/mcL (140-400); Red Blood Count 3.61 M/mcL (4.19-5.50); Red Cell Distribution Width 13.2 % (11.5-14.5); Segmented Neutrophils % 82.5 %
[2018-04-12 04:38] LABS: BUN/Creatinine Ratio 43 (6-26); Blood Urea Nitrogen 36 mg/dL (8-23); Calcium 8.8 mg/dL (8.6-10.3); Carbon Dioxide 25 mEq/L (23-29); Chloride 108 mEq/L (98-107); Glucose 89 mg/dL (70-105); Osmolality,Calculated 292 (280-300); Potassium 3.7 mEq/L (3.5-5.1); Sodium 137 mEq/L (136-145); eGFR For Non-African Americans > 60 (> 60)
[2018-04-12] MEDS: Ringers Solution, Lactated 1,000 ML IVC SCH (07:35)
[2018-04-12] MEDS ORDERED: Oseltamivir Phosphate 30 MG CAPSULE PO ONE ×2 (07:48→20:38)
[2018-04-12] MEDS: Docusate Oral Soln 100 MG/10 ML UDC GTUBE SCH (07:56)
[2018-04-12] MEDS: Oseltamivir 6 MG/ML UDC GTUBE SCH ×2 (08:22→20:48)
[2018-04-12] MEDS ORDERED: Aspirin 81 MG TAB.CHEW PO SCH (09:00)
[2018-04-12] MEDS: Phenytoin Oral Susp 100 MG/4 ML UDC GTUBE SCH ×3 (10:41→20:42)
--- NOTE | 2018-04-12 11:37 | Internal Med Progress Note ---
Hospitalist Progress Note - Encounter Date of Encounter: 04/12/18 Time of Encounter: 09:15 - Subjective Interval History: No acute events overnight, pt states that he does not feed by mouth but still takes his meds orally with water. Denies worsening SOB, cough, sputum production, or fever/chills. - Exam Vitals: Temp Pulse Resp BP Pulse Ox 97.6 F 65 15 99/55 92 04/12/18 10:51 04/12/18 10:51 04/12/18 10:51 04/12/18 10:51 04/12/18 10:51 Exam: General: A&O x 3, not in distress Cardiac: Normal S1, S2, no murmur Pulmonary: scattered rhonchi bilaterallyy, decreased breath sounds Abdomen: soft, nontender. PEG tube site unremarkable Neuro: no focal deficits - Assessment and Plan (1) Sepsis Current Visit: Yes Status: Acute Assessment and Plan: Secondary to multifocal pneumonia and influenza A infection Suspect aspiration episode in view of pt's non-compliance with NPO status strep/legionella Ag -ve sputum culture growing GPC, GNR, gram-neg diplococci. Follow up on final result continue zosyn and tamiflu modified barium swallow today, med via Gtube till MBS (2) Influenza Current Visit: Yes Status: Acute Assessment and Plan: tamiflu as above (3) Pneumonia Current Visit: Yes Status: Acute Assessment and Plan: suspect aspiration zosyn (4) Hypothyroidism Current Visit: Yes Status: Chronic Assessment and Plan: TSH suppressed at 0.04, on levothyroxine 175mcg at home decrease at 125mcg QD, follow up with repeat TSH 4-6 weeks outpatient (5) Elevated troponin I level Current Visit: No Status: Acute Assessment and Plan: likely demand ischemia in the setting of sepsis and multifocal PNA trop 0.14-0.13, EKG without concerning changes Echo unremarkable outpt ischemic workup (6) Seizure Current Visit: No Status: Chronic Assessment and Plan: Switch to oral suspension of phenytoin (7) DVT prophylaxis Current Visit: No Status: Acute Assessment and Plan: SQ heparin - Time Spent with Patient Total time spent is greater than 50% in coordination of care (as documented) at patient's floor/unit and/or counseling patient: Plan of Care Discussed with: patient Internal Medicine: Result - Labs CBC & Chem 7: 04/12/18 03:36 04/12/18 03:36 Labs: Short CBC 04/12/18 Range/Units 03:36 WBC 10.1 (4.3-11.1) K/mcL Hgb 10.4 L (12.9-16.9) g/dL Hct 33.3 L (37.5-50.1) % Plt Count 233 (140-400) K/mcL Neutrophils # 8.3 (1.6-8.9) K/mcL BMP 04/12/18 03:36 Sodium 137 Potassium 3.7 Chloride 108 H Carbon Dioxide 25 BUN 36 H Creatinine 0.83 Glucose 89 Calcium 8.8 - Impressions Impressions Echocardiogram 04/11/18 02:39 Impressions: LVEF 60-65%. Normal LV chamber size, wall thickness and function. Mild left ventricular diastolic dysfunction. Normal right ventricular structure and function. No evidence of pulmonary hypertension. No significant valvular dysfunction. No evidence of a PFO with agitated saline contrast. Left Ventricular Wall Motion: Rest Echo Findings All wall segments showed normal motion. Findings: Study Quality * Technically adequate exam. ECG Findings * Normal sinus rhythm. Left Ventricle * LVEF 60-65%. * Normal LV chamber size, wall thickness and function. * Mild left ventricular diastolic dysfunction. Right Ventricle * Normal right ventricular structure and function. Left Atrium * Normal left atrial size. Right Atrium * Normal right atrial size. Aortic Valve * Aortic valve not well visualized. * No aortic regurgitation. * No aortic stenosis. Mitral Valve * Normal mitral valve structure and function. * No mitral regurgitation. * No mitral stenosis. Tricuspid Valve * Normal tricuspid valve structure and function. * Trace tricuspid regurgitation. * No evidence of pulmonary hypertension. Pulmonic Valve * Pulmonic valve not well visualized. Aorta * Normally sized aortic root. Pericardium * The pericardium appears normal. IVC * Normal IVC dimensions and inspiratory collapse. Pulmonary Artery * Normal visualized portions of the main pulmonary artery. Interatrial Septum * No evidence of a PFO with agitated saline contrast. Consult Discharge Plan - Plan Referrals: NONE,PCP [Primary Care Provider] - (patient doesn't want us to find him a doctor) (1) Sepsis Qualifiers: Sepsis type: sepsis due to unspecified organism Qualified Code(s): A41.9 - Sepsis, unspecified organism (3) Pneumonia Qualifiers: Pneumonia type: aspiration pneumonia Laterality: right Lung location: lower lobe of lung (4) Hypothyroidism Qualifiers: Hypothyroidism type: unspecified Qualified Code(s): E03.9 - Hypothyroidism, unspecified
[2018-04-12] MEDS: *HR* Heparin 5,000 UNIT/ML VIAL SQ SCH (17:40)
[2018-04-12] MEDS ORDERED: Melatonin 3 MG TABLET PO STA (23:59)
[2018-04-13] MEDS: Phenytoin Oral Susp 100 MG/4 ML UDC GTUBE SCH ×2 (03:45→11:35)
[2018-04-13] MEDS: *HR* Heparin 5,000 UNIT/ML VIAL SQ SCH (06:13)
[2018-04-13] MEDS: Oseltamivir 6 MG/ML UDC GTUBE SCH (07:44)
[2018-04-13] MEDS: Docusate Oral Soln 100 MG/10 ML UDC GTUBE SCH (07:44)
[2018-04-13] MEDS: Piperacillin/Tazobactam 3.375 GM in 0.9 % Sodium Chloride Mini Bag 100 ML IVPB SCH (07:45)
[2018-04-13] MEDS ORDERED: Aspirin 81 MG TAB.CHEW GTUBE SCH (09:00)
--- NOTE | 2018-04-13 09:55 | Discharge Summary ---
- NOTES TO OUTPATIENT PROVIDER Notes to Outpatient Provider: Patient with history of tongue cancer s/p resection, hx of aspiration PNA, was admitted for sepsis secondary to PNA and influenza A infection. Sputum culture +ve for GBS. Improved with IV zosyn and tamiflu. MBS again showed evidence of aspiration and pt was advised to avoid any PO intake, including meds which he takes with sips of water. His levothyroxine dosage was decreased from 175 to 125mcg due to TSH being suppressed. He was also found to have elevated troponin which was attributed to demand ischemia from sepsis and normal Echo. Nevertheless, he would benefit from outpatient ischemic workup. Orders not resulted at time of discharge: Pending orders 04/11/18 04:41 Culture,Blood [BC] Routine Date of Encounter: 04/13/18 Time of Encounter: 07:45 - Discharge Diagnosis (1) Sepsis Priority: Primary Status: Acute Qualifiers: Sepsis type: sepsis due to unspecified organism Qualified Code(s): A41.9 - Sepsis, unspecified organism (2) Influenza Priority: Secondary Status: Acute (3) Pneumonia Priority: Secondary Status: Acute Qualifiers: Pneumonia type: aspiration pneumonia Laterality: bilateral Lung location: unspecified part of lung Qualified Code(s): J69.0 - Pneumonitis due to inhalation of food and vomit (4) Hypothyroidism Priority: Secondary Status: Chronic Qualifiers: Hypothyroidism type: unspecified Qualified Code(s): E03.9 - Hypothyroidism, unspecified (5) Elevated troponin I level Priority: Secondary Status: Acute (6) Seizure Priority: Secondary Status: Chronic (7) DVT prophylaxis Priority: Secondary Status: Acute Hospital course: Mr. Donato is a 72 year old male with history of tongue cancer s/p resection, hx of dysphagia and aspiration PNA, was admitted for sepsis secondary to PNA and influenza A infection. Sputum culture +ve for GBS. Improved with IV zosyn and tamiflu. MBS again showed evidence of aspiration and pt was advised to avoid any PO intake, including meds which he takes with sips of water. His levothyroxine dosage was decreased from 175 to 125mcg due to TSH being suppressed. He was also found to have elevated troponin which was attributed to demand ischemia from sepsis and normal Echo. Nevertheless, he would benefit from outpatient ischemic workup. Discharge discussed with: patient, nurse, social work - Time Spent with Patient Total time spent providing and/or coordinating discharge services: 35 mins - Discharge Medications Prescriptions: Amoxicillin/Clavulanate [Augmentin] 875 mg GTUBE BIDWM 7 Days #14 tablet Levothyroxine [Synthroid] 125 mcg GTUBE DAILY@0630 #30 tablet Oseltamivir [Tamiflu Susp] 30 mg GTUBE BID 3 Days #6 [facility] Phenytoin Oral Susp [Dilantin Susp] 100 mg GTUBE Q8H #90 [facility] [place] Medications: Atenolol [Tenormin] 25 mg PO DAILY 09/18/17 [History] Oxycodone HCl [Oxycontin] 10 mg PO BID 09/18/17 [History] Aspirin 81 mg PO DAILY 04/11/18 [History] Docusate [Colace] 100 mg PO DAILY 04/11/18 [History] GuaiFENesin/Dextromethorphan [Children's Mucinex Cough Liq] 10 ml PO Q4H PRN 04/11/18 [History] Rosuvastatin [Crestor] 20 mg PO HS 04/11/18 [History] Amoxicillin/Clavulanate [Augmentin] 875 mg GTUBE BIDWM 7 Days #14 tablet 04/13/18 [Rx] Levothyroxine [Synthroid] 125 mcg GTUBE DAILY@0630 #30 tablet 04/13/18 [Rx] Oseltamivir [Tamiflu Susp] 30 mg GTUBE BID 3 Days #6 [facility] 04/13/18 [Rx] Phenytoin Oral Susp [Dilantin Susp] 100 mg GTUBE Q8H #90 [facility] 04/13/18 [Rx] Allergies/Adverse Reactions: Allergy/AdvReac Type Severity Reaction Status Date / Time No Known Allergies Allergy Verified 01/07/18 12:46 Date of admission: 04/11/18 02:03 Primary care physician: PCP NONE Consults: 04/11/18 02:53 Consult to Career Developer [CONS] Routine Reason for SW Consult: living condition assessment 04/11/18 15:03 dietary consult [Consult to Nutrition] [CONS] Routine Comment: Consulting Provider: NUTRITION Reason for Dietary Consult: Tube Feed Start & Manage 04/11/18 15:40 Consult to Nurse Navigator [CONS] Routine Comment: Pneumonia, COPD 04/11/18 15:55 Consult to Speech Therapy [CONS] Routine Comment: Evaluate, develop and implement POC Reason for Consult: evaluation due to hx of aspirational pneumonia when consuming po diet Time Notified: 15:56 Call Completed: No - Constitutional Vitals: Temp Pulse Resp BP Pulse Ox 98.1 F 70 16 110/70 98 04/13/18 08:04 04/13/18 08:04 04/13/18 08:04 04/13/18 08:04 04/13/18 08:04 Exam: General: A&O x 3, not in distress Cardiac: Normal S1, S2, no murmur Pulmonary: scattered rhonchi bilaterally but improving Abdomen: soft, nontender. PEG tube site unremarkable Neuro: no focal deficits - Patient Status Disposition: Home, Self-Care Condition: Fair Functional capacity at discharge: independent ambulation Overall status at discharge: patient is progressing back to baseline - Discharge Instructions Instructions: Pneumonia (DC), Sepsis (DC), Hypothyroidism (DC) Follow Up With: [facility],PCP [Non-Partnered Physician] - 04/20/18 11:15 am Additional Instructions: Complete a course of AUgmentin and Tamiflu NPO, no meds by mouth as well. Follow up with speech therapy outpatient Levothyroxine dosage decreased to 125mcg/day, follow up with repeat TSH in 4-6 weeks Will need outpatient ischemic workup, had suspected demand ischemia during his stay. Follow up with repeat imaging to ensure resolution of airspace disease as he also had multiple small nodular densities on CT which are probably infectious - Diet and Activity Activity: resume usual activities as tolerated Diet: other (NPO, on tube feeds)
[2018-04-13 11:16] VITALS: BP 96/82
== END 2018-04-13 16:02 | disposition home or self-care (01) | DRG 871 ==
LOC: 2NNU → SUATTDRO 02:03
PROVIDERS: ADMIT Internal Medicine; ATTEND Internal Medicine